=== PATIENT | male | born 1990 | race African-American/Black ===

== ENCOUNTER 2019-06-25 19:02 | Observation (INO) | payer SELFPAY ==
[2019-06-25] MEDS ORDERED: Ondansetron 4 MG/2 ML SDV IVPUSH ONE (19:40)
[2019-06-25] MEDS ORDERED: Ketorolac 30 MG/ML SDV IVPUSH ONE (19:40)
[2019-06-25] MEDS ORDERED: Sodium Chloride 0.9% 1,000 ML IV ONE (19:40)
[2019-06-25] MEDS ORDERED: Alum Hydrox/Mag Hydrox/Simeth 15 ML, Metoclopramide 5 MG, Lidocaine 2% 5 ML PO ONE ×3 (19:42)
--- NOTE | 2019-06-25 19:48 | EDM.PDOC ---
ED HPI GENERAL MEDICAL PROBLEM - General Chief Complaint: Abdominal Pain Stated Complaint: ABN PAIN Time Seen by Provider: 06/25/19 19:38 - History of Present Illness INITIAL COMMENTS - FREE TEXT/NARRATIVE: HISTORY AND PHYSICAL: History of present illness: Patient 28-year-old male presents concerned epigastric abdominal discomfort 3 days this is been off-and-on this seems to be related to food patient denies fever chills denies vomiting denies chest pain shortness breath or other concern. Review of systems: As per history of present illness and below otherwise all systems reviewed and negative. Past medical history: As per history of present illness and as reviewed below otherwise noncontributory. Surgical history: As per history of present illness and as reviewed below otherwise noncontributory. Social history: No reported history of drug or alcohol abuse. Family history: As per history of present illness and as reviewed below otherwise noncontributory. Physical exam: HEENT: Atraumatic, normocephalic, pupils reactive, negative for conjunctival pallor or scleral icterus, mucous membranes moist, throat clear, neck supple, nontender, trachea midline. Lungs: Clear to auscultation, breath sounds equal bilaterally, chest nontender. Heart: S1S2, regular, negative for clicks, rubs, or JVD. Abdomen: Soft, nondistended, mild tenderness epigastrium to palpation no rebound no guarding Negative for masses or hepatosplenomegaly. Negative for costovertebral tenderness. Pelvis: Stable nontender. Genitourinary: Deferred. Rectal: Deferred. Extremities: Atraumatic, negative for cords or calf pain. Neurovascular unremarkable. Neuro: Awake, alert, oriented. Cranial nerves II through XII unremarkable. Cerebellum unremarkable. Motor and sensory unremarkable throughout. Exam nonfocal. Diagnostics: CBC CMP lipase UA ultrasound right upper quadrant Therapeutics: Saline 1 L bolus Toradol 30 mg IV GI cocktail and Zofran 4 mg IV Impression: #1 epigastric abdominal pain etiology to be determined Definitive disposition and diagnosis as appropriate pending reevaluation and review of above. abdominal Pain Score (Numeric/FACES): 10 - Related Data Allergies Allergy/AdvReac Type Severity Reaction Status Date / Time No Known Allergies Allergy Verified 06/25/19 19:36 Home Meds: Home Meds . [No Known Home Meds] 06/25/19 [History] Past Medical History - Past Surgical History HEENT Surgical History: Reports: Oral Surgery Social & Family History - Family History Family Medical History: Noncontributory - Tobacco Use Smoking Status *Q: Never Smoker - Caffeine Use Caffeine Use: Reports: None - Recreational Drug Use Recreational Drug Use: No ED ROS GENERAL - Review of Systems Review Of Systems: ROS reveals no pertinent complaints other than HPI. ED EXAM, GENERAL - Physical Exam Exam: See Below (See dictation) Course - Vital Signs Last Recorded V/S: Last Vital Signs Temp 36.5 C 06/25/19 19:30 Pulse 82 06/25/19 20:23 Resp 17 06/25/19 20:23 BP 116/75 06/25/19 20:23 Pulse Ox 98 06/25/19 20:23 - Orders/Labs/Meds Labs: Laboratory Tests 06/25/19 06/25/19 06/25/19 Range/Units 19:37 19:50 19:50 WBC 7.74 (4.0-11.0) K/uL RBC 4.09 L (4.50-5.90) M/uL Hgb 12.2 L (13.0-17.0) g/dL Hct 36.3 L (38.0-50.0) % MCV 88.8 (80.0-98.0) fL MCH 29.8 (27.0-32.0) pg MCHC 33.6 (31.0-37.0) g/dL RDW Std Deviation 42.8 (28.0-62.0) fl RDW Coeff of Gail 13 (11.0-15.0) % Plt Count 258 (150-400) K/uL MPV 9.60 (7.40-12.00) fL Neut % (Auto) 61.5 (48.0-80.0) % Lymph % (Auto) 23.1 (16.0-40.0) % [place] % (Auto) 11.2 (0.0-15.0) % Eos % (Auto) 3.9 (0.0-7.0) % Baso % (Auto) 0.3 (0.0-1.5) % Neut # (Auto) 4.8 (1.4-5.7) K/uL Lymph # (Auto) 1.8 (0.6-2.4) K/uL [place] # (Auto) 0.9 H (0.0-0.8) K/uL Eos # (Auto) 0.3 (0.0-0.7) K/uL Baso # (Auto) 0.0 (0.0-0.1) K/uL Nucleated RBC % 0.0 /100WBC Nucleated RBCs # 0 K/uL Sodium 138 (136-148) mmol/L Potassium 3.8 (3.5-5.1) mmol/L Chloride 103 (98-107) mmol/L Carbon Dioxide 28.9 (21.0-32.0) mmol/L BUN 12 (7.0-18.0) mg/dL Creatinine 1.1 (0.8-1.3) mg/dL Est Cr Clr Drug Dosing 104.58 mL/min Estimated GFR (MDRD) > 60.0 ml/min Glucose 138 H (74-106) mg/dL Calcium 9.0 (8.5-10.1) mg/dL Total Bilirubin 0.2 (0.2-1.0) mg/dL AST 12 L (15-37) IU/L ALT 16 (14-63) IU/L Alkaline Phosphatase 93 (46-116) U/L Total Protein 6.7 (6.4-8.2) g/dL Albumin 3.2 L (3.4-5.0) g/dL Globulin 3.5 (2.6-4.0) g/dL Albumin/Globulin Ratio 0.9 (0.9-1.6) Lipase 5045 H (73-393) U/L Urine Color YELLOW Urine Appearance HAZY Urine pH 6.0 (5.0-8.0) Ur Specific [place] 1.020 (1.001-1.035) Urine Protein NEGATIVE (NEGATIVE) mg/dL Urine Glucose (UA) NEGATIVE (NEGATIVE) mg/dL Urine Ketones TRACE H (NEGATIVE) mg/dL Urine Occult Blood NEGATIVE (NEGATIVE) Urine Nitrite NEGATIVE (NEGATIVE) Urine Bilirubin NEGATIVE (NEGATIVE) Urine Urobilinogen 0.2 (<2.0) EU/dL Ur Leukocyte Esterase NEGATIVE (NEGATIVE) Meds: Medications Discontinued Medications Generic Name Dose Route Start Last Admin Trade Name Freq PRN Reason Stop Dose Admin Al Hydroxide/Mg Hydroxide 15 0 ml 06/25/19 19:42 06/25/19 19:56 ml/ Metoclopramide HCl 5 mg/ PO 06/25/19 19:43 1 each Lidocaine HCl 5 ml ONETIME ONE Administration Sodium Chloride 1,000 mls @ 999 mls/hr 06/25/19 19:40 06/25/19 19:56 Normal Saline IV 06/25/19 20:40 999 mls/hr BOLUS ONE Administration Ketorolac Tromethamine 30 mg 06/25/19 19:40 06/25/19 19:58 Toradol IVPUSH 06/25/19 19:41 30 mg ONETIME ONE Administration Ondansetron HCl 4 mg 06/25/19 19:40 06/25/19 19:56 Zofran IVPUSH 06/25/19 19:41 4 mg ONETIME ONE Administration Departure - Departure Time of Disposition: 22:13 Disposition: Refer to Observation Condition: Good Clinical Impression: Abdominal pain, Pancreatitis - Discharge Information Referrals: PCP,None [Primary Care Provider] - Forms: ED Department Discharge
[2019-06-25 20:23] LABS: CHLORIDE,CL 103 mmol/L (98-107); SODIUM,NA 138 mmol/L (136-148)
--- NOTE | 2019-06-25 21:24 | US ---
INDICATION: Epigastric pain TECHNIQUE: Ultrasound abdomen limited. Sonographic images of the right upper quadrant were obtained using sepulveda-scale and color Doppler images. COMPARISON: None FINDINGS: Liver: The liver parenchyma is normal in echotexture. Gallbladder: No gallstones or sludge seen in the contracted lumen. The gallbladder wall is normal in appearance. No pericholecystic fluid is present. No sonographic [place] sign is present. Common bile duct: 8 mm. No intrahepatic biliary ductal dilatation seen. Pancreas: The visualized portions of the pancreatic head and body are normal in appearance. Right Kidney: 10.5 cm. No hydronephrosis or ureterectasis is seen. Vascular: The IVC and aorta are not well demonstrated. IMPRESSION: 1. The CBD is enlarged for the patient`s age, measuring 8 mm. If there is clinical evidence of biliary obstruction, further evaluation with MRCP is recommended. Dictated by Davi Carl MD @ 06/25/2019 9:22:01 PM Dictated by: Davi Carl MD @ 06/25/2019 21:22:07 (Electronically Signed)
[2019-06-25] MEDS ORDERED: Sodium Chloride 0.9% 1,000 ML IV SCH (22:30)
[2019-06-25] MEDS ORDERED: LORazepam 2 MG/ML SDV IVPUSH PRN (23:25)
[2019-06-25] MEDS: Morphine 2 MG/ML Syringe IVPUSH PRN (23:50)
[2019-06-26] MEDS: Morphine 2 MG/ML Syringe IVPUSH PRN ×7 (04:38→23:56)
[2019-06-26] MEDS: Sodium Chloride 0.9% 1,000 ML IV SCH ×3 (04:42→17:58)
[2019-06-26 06:51] LABS: CHLORIDE,CL 106 mmol/L (98-107); SODIUM,NA 139 mmol/L (136-148)
--- NOTE | 2019-06-26 07:37 | PCM.HP.2 ---
H&P History of Present Illness - General Date of Service: 06/26/19 Admit Problem/Dx: Admission Diagnosis/Problem Admission Diagnosis/Problem Pancreatitis Source of Information: Patient History Limitations: Reports: No Limitations - History of Present Illness Initial Comments - Free Text/Narative: The patient is an otherwise healthy 28-year-old gentleman who presented to the emergency department with a complaint of abdominal pain for the past 3 days. Patient also says that he has traveled from [place] and riding in the car was extremely uncomfortable. He started to have back pain with this which is located on the right side of his back and radiated around to the front. The patient also said that the pain he was experiencing was made markedly worse after eating. The patient also admits to drinking 24 ounces of light beer per day and had been drinking slightly more before his abdominal pain occurred. The patient says that he has not had any nausea or vomiting. He has been afraid to eat secondary to the pain. No diarrhea or constipation. No fever or chills. Onset of Symptoms: Reports: Gradual Duration of Symptoms: Reports: Day(s): Location: Reports: Abdomen, Back Quality: Reports: Stabbing, Throbbing Severity: Moderate Improves with: Reports: Medication, Rest Worsens with: Reports: Eating Context: Reports: Sick Contact Associated Symptoms: Reports: Nausea/Vomiting abdominal Pain Score (Numeric/FACES): 5 - Related Data Allergies/Adverse Reactions: Allergies Allergy/AdvReac Type Severity Reaction Status Date / Time No Known Allergies Allergy Verified 06/25/19 23:01 Home Medications: Home Meds . [No Known Home Meds] 06/25/19 [History] Past Medical History HEENT History: Reports: None Cardiovascular History: Reports: None Respiratory History: Reports: None Gastrointestinal History: Reports: Hemorrhoids Genitourinary History: Reports: None Musculoskeletal History: Reports: Fracture Neurological History: Reports: None Psychiatric History: Reports: None Endocrine/Metabolic History: Reports: None Hematologic History: Reports: None Immunologic History: Reports: None Oncologic (Cancer) History: Reports: None Dermatologic History: Reports: None - Infectious Disease History Infectious Disease History: Reports: None - Past Surgical History HEENT Surgical History: Reports: Oral Surgery Social & Family History - Family History Family Medical History: Noncontributory - Tobacco Use Smoking Status *Q: Former Smoker Used Tobacco, but Quit: Yes Month/Year Tobacco Last Used: 11/2013 - Caffeine Use Caffeine Use: Reports: Tea - Alcohol Use Alcohol Use History: Yes Days Per Week of Alcohol Use: 7 Number of Drinks Per Day: 1 Total Drinks Per Week: 7 Date of Last Drink: 06/23/19 Alcohol Use in Last Twelve Months: Yes - Recreational Drug Use Recreational Drug Use: No - Living Situation & Occupation Living situation: Reports: Occupation: Employed H&P Review of Systems - Review of Systems: Review Of Systems: See Below General: Reports: Decreased Appetite HEENT: Reports: No Symptoms Pulmonary: Reports: No Symptoms Cardiovascular: Reports: No Symptoms Gastrointestinal: Reports: Abdominal Pain, Nausea Genitourinary: Reports: No Symptoms Musculoskeletal: Reports: Back Pain Skin: Reports: No Symptoms Psychiatric: Reports: No Symptoms Neurological: Reports: No Symptoms Hematologic/Lymphatic: Reports: No Symptoms Immunologic: Reports: No Symptoms Exam - Exam Exam: See Below - Vital Signs Vital Signs: Last Vital Signs Temp 36.5 C 06/26/19 03:52 Pulse 79 06/26/19 03:52 Resp 16 06/26/19 03:52 BP 105/58 L 06/26/19 03:52 Pulse Ox 97 06/26/19 03:52 Weight: 92.079 kg - Exam Quality Assessment: No: Supplemental Oxygen General: Alert, Oriented, Cooperative, Mild Distress HEENT: Conjunctiva Clear, EACs Clear, EOMI, Pupils Equal, PERRLA. No: Mucosa Moist & [place] (Dry) Neck: Supple, Trachea Midline Lungs: Clear to Auscultation, Normal Respiratory Effort Cardiovascular: Regular Rate, Regular Rhythm GI/Abdominal Exam: Normal Bowel Sounds, Soft, No Distention, Tender (Tender supraumbilical area). No: Guarding, Rigid, Rebound Back Exam: Normal Inspection, Full Range of Motion. No: CVA Tenderness (L), CVA Tenderness (R) Extremities: Normal Inspection, No Pedal Edema Skin: Warm, Dry, Intact Neurological: Cranial Nerves Intact Neuro Extensive - Mental Status: Alert, Oriented x3 Psychiatric: Alert, Normal Affect, Normal Mood - Patient Data Lab Results Last 24 hrs: Laboratory Results - last 24 hr 06/25/19 06/25/19 06/25/19 Range/Units 19:37 19:50 19:50 WBC 7.74 (4.0-11.0) K/uL RBC 4.09 L (4.50-5.90) M/uL Hgb 12.2 L (13.0-17.0) g/dL Hct 36.3 L (38.0-50.0) % MCV 88.8 (80.0-98.0) fL MCH 29.8 (27.0-32.0) pg MCHC 33.6 (31.0-37.0) g/dL RDW Std Deviation 42.8 (28.0-62.0) fl RDW Coeff of Gail 13 (11.0-15.0) % Plt Count 258 (150-400) K/uL MPV 9.60 (7.40-12.00) fL Neut % (Auto) 61.5 (48.0-80.0) % Lymph % (Auto) 23.1 (16.0-40.0) % [place] % (Auto) 11.2 (0.0-15.0) % Eos % (Auto) 3.9 (0.0-7.0) % Baso % (Auto) 0.3 (0.0-1.5) % Neut # (Auto) 4.8 (1.4-5.7) K/uL Lymph # (Auto) 1.8 (0.6-2.4) K/uL [place] # (Auto) 0.9 H (0.0-0.8) K/uL Eos # (Auto) 0.3 (0.0-0.7) K/uL Baso # (Auto) 0.0 (0.0-0.1) K/uL Nucleated RBC % 0.0 /100WBC Nucleated RBCs # 0 K/uL Sodium 138 (136-148) mmol/L Potassium 3.8 (3.5-5.1) mmol/L Chloride 103 (98-107) mmol/L Carbon Dioxide 28.9 (21.0-32.0) mmol/L BUN 12 (7.0-18.0) mg/dL Creatinine 1.1 (0.8-1.3) mg/dL Est Cr Clr Drug Dosing 104.58 mL/min Estimated GFR (MDRD) > 60.0 ml/min Glucose 138 H (74-106) mg/dL Calcium 9.0 (8.5-10.1) mg/dL Total Bilirubin 0.2 (0.2-1.0) mg/dL AST 12 L (15-37) IU/L ALT 16 (14-63) IU/L Alkaline Phosphatase 93 (46-116) U/L Total Protein 6.7 (6.4-8.2) g/dL Albumin 3.2 L (3.4-5.0) g/dL Globulin 3.5 (2.6-4.0) g/dL Albumin/Globulin Ratio 0.9 (0.9-1.6) Lipase 5045 H (73-393) U/L Urine Color YELLOW Urine Appearance HAZY Urine pH 6.0 (5.0-8.0) Ur Specific [place] 1.020 (1.001-1.035) Urine Protein NEGATIVE (NEGATIVE) mg/dL Urine Glucose (UA) NEGATIVE (NEGATIVE) mg/dL Urine Ketones TRACE H (NEGATIVE) mg/dL Urine Occult Blood NEGATIVE (NEGATIVE) Urine Nitrite NEGATIVE (NEGATIVE) Urine Bilirubin NEGATIVE (NEGATIVE) Urine Urobilinogen 0.2 (<2.0) EU/dL Ur Leukocyte Esterase NEGATIVE (NEGATIVE) 06/26/19 06/26/19 Range/Units 06:17 06:17 WBC 6.79 (4.0-11.0) K/uL RBC 3.88 L (4.50-5.90) M/uL Hgb 11.3 L (13.0-17.0) g/dL Hct 34.5 L (38.0-50.0) % MCV 88.9 (80.0-98.0) fL MCH 29.1 (27.0-32.0) pg MCHC 32.8 (31.0-37.0) g/dL RDW Std Deviation 43.1 (28.0-62.0) fl RDW Coeff of Gail 13 (11.0-15.0) % Plt Count 228 (150-400) K/uL MPV 9.70 (7.40-12.00) fL Neut % (Auto) 64.4 (48.0-80.0) % Lymph % (Auto) 18.7 (16.0-40.0) % [place] % (Auto) 12.4 (0.0-15.0) % Eos % (Auto) 4.4 (0.0-7.0) % Baso % (Auto) 0.1 (0.0-1.5) % Neut # (Auto) 4.4 (1.4-5.7) K/uL Lymph # (Auto) 1.3 (0.6-2.4) K/uL [place] # (Auto) 0.8 (0.0-0.8) K/uL Eos # (Auto) 0.3 (0.0-0.7) K/uL Baso # (Auto) 0.0 (0.0-0.1) K/uL Nucleated RBC % 0.0 /100WBC Nucleated RBCs # 0 K/uL Sodium 139 (136-148) mmol/L Potassium 4.2 (3.5-5.1) mmol/L Chloride 106 (98-107) mmol/L Carbon Dioxide 27.2 (21.0-32.0) mmol/L BUN 10 (7.0-18.0) mg/dL Creatinine 0.9 (0.8-1.3) mg/dL Est Cr Clr Drug Dosing 127.82 mL/min Estimated GFR (MDRD) > 60.0 ml/min Glucose 99 (74-106) mg/dL Calcium 8.5 (8.5-10.1) mg/dL Total Bilirubin 0.3 (0.2-1.0) mg/dL AST 15 (15-37) IU/L ALT 20 (14-63) IU/L Alkaline Phosphatase 82 (46-116) U/L Total Protein 6.0 L (6.4-8.2) g/dL Albumin 2.8 L (3.4-5.0) g/dL Globulin 3.2 (2.6-4.0) g/dL Albumin/Globulin Ratio 0.9 (0.9-1.6) Lipase 4169 H (73-393) U/L Urine Color Urine Appearance Urine pH (5.0-8.0) Ur Specific [place] (1.001-1.035) Urine Protein (NEGATIVE) mg/dL Urine Glucose (UA) (NEGATIVE) mg/dL Urine Ketones (NEGATIVE) mg/dL Urine Occult Blood (NEGATIVE) Urine Nitrite (NEGATIVE) Urine Bilirubin (NEGATIVE) Urine Urobilinogen (<2.0) EU/dL Ur Leukocyte Esterase (NEGATIVE) Result Diagrams: 06/26/19 06:17 06/26/19 06:17 - Problem List (1) Pancreatitis SNOMED Code(s): 14310222 ICD Code: K85.90 - ACUTE PANCREATITIS WITHOUT NECROSIS OR INFECTION, UNSP Status: Acute Priority: High Current Visit: Yes Qualifiers: Chronicity: acute Pancreatitis type: unspecified pancreatitis type Acute pancreatitis complication: no infection or necrosis Qualified Code(s): K85.90 - Acute pancreatitis without necrosis or infection, unspecified (2) Alcohol use SNOMED Code(s): 857814 ICD Code: Z72.89 - OTHER PROBLEMS RELATED TO LIFESTYLE Status: Acute Current Visit: Yes (3) Abdominal pain SNOMED Code(s): 23381133 ICD Code: R10.9 - UNSPECIFIED ABDOMINAL PAIN Status: Acute Current Visit : Yes Problem List Initiated/Reviewed/Updated: Yes Orders Last 24hrs: Active Orders 24 hr Category Date Time Status Patient Status [ADT] Stat ADT 06/25/19 22:14 Active CIWAA Assessment [RC] Q4H Care 06/26/19 00:00 Active Oxygen Therapy [RC] PRN Care 06/26/19 07:35 Active Up ad Alisha [RC] ASDIRECTED Care 06/26/19 07:35 Active VTE/DVT Education [RC] PER UNIT ROUTINE Care 06/26/19 07:35 Active Vital Signs [RC] Q4H Care 06/26/19 07:35 Active NPO [Nothing Per Oral Diet] [DIET] Diet 06/26/19 Breakfast Active Nothing per Oral Now Diet [DIET] Diet 06/26/19 Lunch Active Enoxaparin [Lovenox] Med 06/26/19 07:45 Ordered 30 mg SUBCUT Q24H LORazepam [Ativan] Med 06/25/19 23:25 Active See Protocol IVPUSH Q4H PRN Morphine Med 06/26/19 07:35 Ordered 2 mg IVPUSH Q2H PRN Morphine Med 06/25/19 23:23 Active 2 mg IVPUSH Q4H PRN Sodium Chloride 0.9% [Normal Saline] 1,000 ml Med 06/25/19 23:30 Active IV ASDIRECTED Resuscitation Status Routine Resus Stat 06/26/19 07:35 Ordered Medication Orders Enoxaparin Sodium (Lovenox) 30 mg SUBCUT Q24H DEDRICK Sodium Chloride (Normal Saline) 1,000 mls @ 150 mls/hr IV ASDIRECTED [facility] Last Admin: 06/26/19 04:42 Dose: 150 mls/hr Lorazepam (Ativan) 0 mg IVPUSH Q4H PRN; Protocol PRN Reason: Withdrawal Symptoms Morphine Sulfate (Morphine) 2 mg IVPUSH Q4H PRN PRN Reason: Pain Last Admin: 06/26/19 04:38 Dose: 2 mg Admin: 06/25/19 23:50 Dose: 2 mg Morphine Sulfate (Morphine) 2 mg IVPUSH Q2H PRN PRN Reason: Pain (severe 7-10) Stop: 06/27/19 07:35 Assessment/Plan Comment:: The patient is a 28-year-old gentleman who has acute pancreatitis as evidenced by physical examination as well as his initial lipase being elevated at 5045 units per liter. The patient has said that he only drinks 24 ounces of beer per day and I do not believe that the patient is minimizing. The patient had a ultrasound of his right upper quadrant obtained to the emergency department which was suggestive of possible bile duct obstruction with a dilation of 8 mm. MRCP was recommended. In the ultrasound the visualized portion of the pancreas was normal. The patient will be kept in hospitalization and he'll be kept nothing by mouth now except for ice chips. The patient will also have his pain controlled with the use of narcotic pain medications. The patient will be kept on IV fluids normal saline at 150 mL per hour. Repeat laboratory testing including lipase is been ordered. The patient will also have DVT prophylaxis with the use of Lovenox. As anticipated the patient should be appropriate for discharge in 1-2 days depending upon his symptoms and being able to tolerate a diet. The patient has been encouraged to ambulate. - Mortality Measure Prognosis:: Good
[2019-06-26] MEDS: Enoxaparin 40 MG/0.4 ML Syringe SUBCUT SCH (07:56)
[2019-06-27] MEDS: Sodium Chloride 0.9% 1,000 ML IV SCH ×2 (00:02→06:39)
[2019-06-27] MEDS: Morphine 2 MG/ML Syringe IVPUSH PRN (05:35)
[2019-06-27 07:00] LABS: CHLORIDE,CL 103 mmol/L (98-107); SODIUM,NA 138 mmol/L (136-148)
[2019-06-27] MEDS ORDERED: Morphine 2 MG/ML Syringe IVPUSH PRN (07:36)
[2019-06-27] MEDS: Enoxaparin 40 MG/0.4 ML Syringe SUBCUT SCH (08:27)
--- NOTE | 2019-06-27 08:48 | PCM.PN ---
<Thaddeus Ramos - Last Filed: 06/27/19 14:33> - General Info Date of Service: 06/27/19 Subjective Update: pt. seen at bedside; states pain is improved since admission; states back pain is improving and thinks it is most likely secondary to laying in bed x 2 days. No other complaints at this time. - Review of Systems General: Reports: No Symptoms HEENT: Reports: No Symptoms Pulmonary: Reports: No Symptoms Cardiovascular: Reports: No Symptoms Gastrointestinal: Reports: Abdominal Pain, Nausea Genitourinary: Reports: No Symptoms Musculoskeletal: Reports: Back Pain Skin: Reports: No Symptoms Neurological: Reports: No Symptoms Psychiatric: Reports: No Symptoms - Patient Data Vitals - Most Recent: Last Vital Signs Temp 99.6 F 06/27/19 08:00 Pulse 93 06/27/19 08:00 Resp 17 06/27/19 08:00 BP 100/73 06/27/19 08:00 Pulse Ox 95 06/27/19 08:00 Weight - Most Recent: 92.079 kg I&O - Last 24 Hours: Intake & Output 06/26/19 06/27/19 06/27/19 22:59 06:59 14:59 Intake Total 723 2055 Output Total 1400 900 Balance -677 1155 Lab Results Last 24 Hours: Laboratory Results - last 24 hr 06/27/19 06/27/19 Range/Units 05:54 05:54 WBC 5.66 (4.0-11.0) K/uL RBC 3.89 L (4.50-5.90) M/uL Hgb 11.4 L (13.0-17.0) g/dL Hct 34.6 L (38.0-50.0) % MCV 88.9 (80.0-98.0) fL MCH 29.3 (27.0-32.0) pg MCHC 32.9 (31.0-37.0) g/dL RDW Std Deviation 43.1 (28.0-62.0) fl RDW Coeff of Gail 13 (11.0-15.0) % Plt Count 250 (150-400) K/uL MPV 9.70 (7.40-12.00) fL Add Manual Diff YES Neutrophils % (Manual) 13 L (48.0-80.0) % Band Neutrophils % 37 % Lymphocytes % (Manual) 35 (16.0-40.0) % Monocytes % (Manual) 10 (0.0-15.0) % Eosinophils % (Manual) 5 (0.0-7.0) % Nucleated RBC % 0.0 /100WBC Absolute Seg Neuts 0.7 L (1.4-5.7) Band Neutrophils # 2.1 Lymphocytes # (Manual) 2.0 (0.6-2.4) Monocytes # (Manual) 0.6 (0.0-0.8) Eosinophils # (Manual) 0.3 (0.0-0.7) Nucleated RBCs # 0 K/uL Sodium 138 (136-148) mmol/L Potassium 4.0 (3.5-5.1) mmol/L Chloride 103 (98-107) mmol/L Carbon Dioxide 25.4 (21.0-32.0) mmol/L BUN 7 (7.0-18.0) mg/dL Creatinine 1.0 (0.8-1.3) mg/dL Est Cr Clr Drug Dosing 115.04 mL/min Estimated GFR (MDRD) > 60.0 ml/min Glucose 98 (74-106) mg/dL Calcium 8.7 (8.5-10.1) mg/dL Total Bilirubin 0.6 (0.2-1.0) mg/dL AST 11 L (15-37) IU/L ALT 19 (14-63) IU/L Alkaline Phosphatase 80 (46-116) U/L Total Protein 6.1 L (6.4-8.2) g/dL Albumin 2.7 L (3.4-5.0) g/dL Globulin 3.4 (2.6-4.0) g/dL Albumin/Globulin Ratio 0.8 L (0.9-1.6) Lipase 3010 H (73-393) U/L Med Orders - Current: Current Medications Enoxaparin Sodium (Lovenox) 40 mg SUBCUT Q24H [facility] Last Admin: 06/27/19 08:27 Dose: 40 mg Sodium Chloride (Normal Saline) 1,000 mls @ 150 mls/hr IV ASDIRECTED [facility] Last Admin: 06/27/19 06:39 Dose: 150 mls/hr Lorazepam (Ativan) 0 mg IVPUSH Q4H PRN; Protocol PRN Reason: Withdrawal Symptoms Morphine Sulfate (Morphine) 2 mg IVPUSH Q4H PRN PRN Reason: Pain Discontinued Medications Al Hydroxide/Mg Hydroxide 15 ml/ Metoclopramide HCl 5 mg/Lidocaine HCl 5 ml 0 ml PO ONETIME ONE Stop: 06/25/19 19:43 Last Admin: 06/25/19 19:56 Dose: 1 each Sodium Chloride (Normal Saline) 1,000 mls @ 999 mls/hr IV BOLUS ONE Stop: 06/25/19 20:40 Last Admin: 06/25/19 19:56 Dose: 999 mls/hr Sodium Chloride (Normal Saline) 1,000 mls @ 125 mls/hr IV ASDIRECTED [facility] Last Infusion: 06/25/19 23:56 Dose: 150 mls/hr Ketorolac Tromethamine (Toradol) 30 mg IVPUSH ONETIME ONE Stop: 06/25/19 19:41 Last Admin: 06/25/19 19:58 Dose: 30 mg Morphine Sulfate (Morphine) 2 mg IVPUSH Q4H PRN PRN Reason: Pain Last Admin: 06/26/19 04:38 Dose: 2 mg Morphine Sulfate (Morphine) 2 mg IVPUSH Q2H PRN PRN Reason: Pain (severe 7-10) Stop: 06/27/19 07:35 Last Admin: 06/27/19 05:35 Dose: 2 mg Ondansetron HCl (Zofran) 4 mg IVPUSH ONETIME ONE Stop: 06/25/19 19:41 Last Admin: 06/25/19 19:56 Dose: 4 mg - Exam General: Alert, Oriented HEENT: Pupils Equal, Pupils Reactive, EOMI Neck: Supple Lungs: Clear to Auscultation, Normal Respiratory Effort Cardiovascular: Regular Rate, Regular Rhythm GI/Abdominal Exam: Normal Bowel Sounds, Soft, No Distention, Tender (epigastrum ). No: Rebound Back Exam: Full Range of Motion, Paraspinal Tenderness. No: Vertebral Tenderness Extremities: Normal Inspection, Normal Range of Motion, No Pedal Edema Skin: Warm, Dry, Intact Neurological: No New Focal Deficit Psy/Mental Status: Alert, Normal Affect, Normal Mood - Problem List & Annotations (1) Abdominal pain SNOMED Code(s): 87943446 Code(s): R10.9 - UNSPECIFIED ABDOMINAL PAIN Status: Acute (2) Alcohol use SNOMED Code(s): 591160 Code(s): Z72.89 - OTHER PROBLEMS RELATED TO LIFESTYLE Status: Acute (3) Pancreatitis SNOMED Code(s): 66412832 Code(s): K85.90 - ACUTE PANCREATITIS WITHOUT NECROSIS OR INFECTION, UNSP Status: Acute Priority: High Qualifiers: Chronicity: acute Pancreatitis type: unspecified pancreatitis type Acute pancreatitis complication: no infection or necrosis Qualified Code(s): K85.90 - Acute pancreatitis without necrosis or infection, unspecified - Problem List Review Problem List Initiated/Reviewed/Updated: Yes - Assessment Assessment:: acute pancreatitis - Plan: continue IV -fluids, encourage increase PO intake . MRCP scheduled for today. Advance diet as tolerated - Plan Plan:: . <Titus Watts - Last Filed: 06/27/19 19:28> - Patient Data Vitals - Most Recent: Last Vital Signs Temp 36.3 C 06/27/19 16:00 Pulse 98 06/27/19 16:00 Resp 18 06/27/19 16:00 BP 116/68 06/27/19 16:00 Pulse Ox 98 06/27/19 16:00 I&O - Last 24 Hours: Intake & Output 06/27/19 06/27/19 06/27/19 06:59 14:59 22:59 Intake Total 2055 1805 Output Total 900 300 Balance 1155 1505 Lab Results Last 24 Hours: Laboratory Results - last 24 hr 06/27/19 06/27/19 06/27/19 Range/Units 05:54 05:54 05:54 WBC 5.66 (4.0-11.0) K/uL RBC 3.89 L (4.50-5.90) M/uL Hgb 11.4 L (13.0-17.0) g/dL Hct 34.6 L (38.0-50.0) % MCV 88.9 (80.0-98.0) fL MCH 29.3 (27.0-32.0) pg MCHC 32.9 (31.0-37.0) g/dL RDW Std Deviation 43.1 (28.0-62.0) fl RDW Coeff of Gail 13 (11.0-15.0) % Plt Count 250 (150-400) K/uL MPV 9.70 (7.40-12.00) fL Add Manual Diff YES Neutrophils % (Manual) 13 L (48.0-80.0) % Band Neutrophils % 37 % Lymphocytes % (Manual) 35 (16.0-40.0) % Monocytes % (Manual) 10 (0.0-15.0) % Eosinophils % (Manual) 5 (0.0-7.0) % Nucleated RBC % 0.0 /100WBC Absolute Seg Neuts 0.7 L (1.4-5.7) Band Neutrophils # 2.1 Lymphocytes # (Manual) 2.0 (0.6-2.4) Monocytes # (Manual) 0.6 (0.0-0.8) Eosinophils # (Manual) 0.3 (0.0-0.7) Nucleated RBCs # 0 K/uL Sodium 138 (136-148) mmol/L Potassium 4.0 (3.5-5.1) mmol/L Chloride 103 (98-107) mmol/L Carbon Dioxide 25.4 (21.0-32.0) mmol/L BUN 7 (7.0-18.0) mg/dL Creatinine 1.0 (0.8-1.3) mg/dL Est Cr Clr Drug Dosing 115.04 mL/min Estimated GFR (MDRD) > 60.0 ml/min Glucose 98 (74-106) mg/dL Calcium 8.7 (8.5-10.1) mg/dL Total Bilirubin 0.6 (0.2-1.0) mg/dL AST 11 L (15-37) IU/L ALT 19 (14-63) IU/L Alkaline Phosphatase 80 (46-116) U/L Total Protein 6.1 L (6.4-8.2) g/dL Albumin 2.7 L (3.4-5.0) g/dL Globulin 3.4 (2.6-4.0) g/dL Albumin/Globulin Ratio 0.8 L (0.9-1.6) Triglycerides 80 (0-200) mg/dL Cholesterol 100 (50-200) mg/dL LDL Cholesterol, Calc 57 L (60-180) mg/dL VLDL Cholesterol 16 (5-55) mg/dL HDL Cholesterol 27 L (40-60) mg/dL Cholesterol/HDL Ratio 3.7 (3.3-6.0) Lipase 3010 H (73-393) U/L Med Orders - Current: Current Medications Discontinued Medications Al Hydroxide/Mg Hydroxide 15 ml/ Metoclopramide HCl 5 mg/Lidocaine HCl 5 ml 0 ml PO ONETIME ONE Stop: 06/25/19 19:43 Last Admin: 06/25/19 19:56 Dose: 1 each Enoxaparin Sodium (Lovenox) 40 mg SUBCUT Q24H [facility] Last Admin: 06/27/19 08:27 Dose: 40 mg Gadobenate Dimeglumine (Multihance) 20 ml IVPUSH ONETIME STA Stop: 06/27/19 11:39 Last Admin: 06/27/19 11:38 Dose: 18 ml Sodium Chloride (Normal Saline) 1,000 mls @ 999 mls/hr IV BOLUS ONE Stop: 06/25/19 20:40 Last Admin: 06/25/19 19:56 Dose: 999 mls/hr Sodium Chloride (Normal Saline) 1,000 mls @ 125 mls/hr IV ASDIRECTED [facility] Last Infusion: 06/25/19 23:56 Dose: 150 mls/hr Sodium Chloride (Normal Saline) 1,000 mls @ 150 mls/hr IV ASDIRECTED [facility] Last Admin: 06/27/19 06:39 Dose: 150 mls/hr Ibuprofen (Motrin) 800 mg PO ONETIME ONE Stop: 06/27/19 17:15 Last Admin: 06/27/19 17:44 Dose: 800 mg Ketorolac Tromethamine (Toradol) 30 mg IVPUSH ONETIME ONE Stop: 06/25/19 19:41 Last Admin: 06/25/19 19:58 Dose: 30 mg Lorazepam (Ativan) 0 mg IVPUSH Q4H PRN; Protocol PRN Reason: Withdrawal Symptoms Morphine Sulfate (Morphine) 2 mg IVPUSH Q4H PRN PRN Reason: Pain Last Admin: 06/26/19 04:38 Dose: 2 mg Morphine Sulfate (Morphine) 2 mg IVPUSH Q2H PRN PRN Reason: Pain (severe 7-10) Stop: 06/27/19 07:35 Last Admin: 06/27/19 05:35 Dose: 2 mg Morphine Sulfate (Morphine) 2 mg IVPUSH Q4H PRN PRN Reason: Pain Last Admin: 06/27/19 09:48 Dose: 2 mg Ondansetron HCl (Zofran) 4 mg IVPUSH ONETIME ONE Stop: 06/25/19 19:41 Last Admin: 06/25/19 19:56 Dose: 4 mg - Free Text/Narrative Note: I have evaluated the patient. I have discussed findings and treatment plan with resident. I agree with the assessment and plan outlined in the following note.
[2019-06-27] MEDS ORDERED: Gadobenate Dimeglumine 529 MG/ML 20 ML SDV IVPUSH STA (11:38)
--- NOTE | 2019-06-27 13:26 | MR ---
INDICATION: Pancreatitis. COMPARISON: Abdominal ultrasound dated 25 June 2019. TECHNIQUE: Abdominal MRI with T1 in- and out of phase, T2, diffusion weighted, and progressively delayed post-contrast images. Intravenous gadolinium administered. FINDINGS: No fatty infiltration of the liver. No focal abnormalities identified in the visualized portions of the liver, spleen, pancreas, adrenal glands, and kidneys. No hydronephrosis. Mild edema around the head of the pancreas. Mild dilation of the common bile duct measuring up to 8 mm. No intrahepatic bile duct dilation. No definite filling defects in the biliary system. Normal size of the main pancreatic duct. IMPRESSION: 1. Mild edema around the head of the pancreas representing an acute pancreatitis. No evidence of pancreatic necrosis. 2. Mild dilation of the common bile duct. No definite choledocholithiasis identified. Dictated by Jasson Ellison MD @ Jun 27 2019 1:12PM Signed by Dr. Jasson Ellison @ Jun 27 2019 1:24PM
--- NOTE | 2019-06-27 15:10 | PCM.DCSUM1 ---
<Thaddeus Ramos - Last Filed: 06/27/19 16:04> Discharge Summary - Hospital Course Free Text/Narrative:: Discharge summary Admission date June 26, 2019 Discharge date June 27/2019 Admission diagnoses: acute pancreatitis Back pain Discharge diagnoses: acute pancreatitis improving Back pain stable Consultations: none Procedures: none Hospital course: Patient is a otherwise 28-year-old male presenting for acute abdominal pain for 3 days w/ low back pain. Patient was drinking 24 ounce of alcohol daily however had been celebrating more than usual. 2-3 days prior to admission. CAGE questionnaire negative. On admission lipase was elevated; patient ultimately diagnosed with pancreatitis was made NPO and started on IV fluids, and pain was managed w/ morphine. Following day patient had a MRCP secondary to marginal dilation of common bile duct however no stones or phlegmons were appreciated. Patient diet advanced as tolerated; no increase pain w/ bland diet prior to discharge, not requesting more pain meds. Discharge in stable condition. Disposition: home Discharge medications: none Follow-up:advise a follow-up PCP within one week. - Discharge Data Discharge Date: 06/27/19 Discharge Disposition: Home, Self-Care 01 Condition: Good - Discharge Diagnosis/Problem(s) (1) Abdominal pain SNOMED Code(s): 00448314 ICD Code: R10.9 - UNSPECIFIED ABDOMINAL PAIN Status: Acute (2) Alcohol use SNOMED Code(s): 431797 ICD Code: Z72.89 - OTHER PROBLEMS RELATED TO LIFESTYLE Status: Acute (3) Pancreatitis SNOMED Code(s): 49238491 ICD Code: K85.90 - ACUTE PANCREATITIS WITHOUT NECROSIS OR INFECTION, UNSP Status: Acute Priority: High Qualifiers: Chronicity: acute Pancreatitis type: unspecified pancreatitis type Acute pancreatitis complication: no infection or necrosis Qualified Code(s): K85.90 - Acute pancreatitis without necrosis or infection, unspecified - Discharge Plan Home Medications: Home Meds . [No Known Home Meds] 06/25/19 [History] Patient Handouts: Acute Pancreatitis, [id number], Levy Diet Referrals: Marli Feliciano NP [Nurse Practitioner] - 07/08/19 1:00 pm - Discharge Summary/Plan Comment DC Time >30 min.: No - Patient Data Vitals - Most Recent: Last Vital Signs Temp 100.0 F 06/27/19 12:00 Pulse 92 06/27/19 12:00 Resp 16 06/27/19 12:00 BP 106/72 06/27/19 12:00 Pulse Ox 97 06/27/19 12:00 Weight - Most Recent: 92.079 kg I&O - Last 24 hours: Intake & Output 06/27/19 06/27/19 06/27/19 06:59 14:59 22:59 Intake Total 2055 Output Total 900 Balance 1155 Lab Results - Last 24 hrs: Laboratory Results - last 24 hr 06/27/19 06/27/19 06/27/19 Range/Units 05:54 05:54 05:54 WBC 5.66 (4.0-11.0) K/uL RBC 3.89 L (4.50-5.90) M/uL Hgb 11.4 L (13.0-17.0) g/dL Hct 34.6 L (38.0-50.0) % MCV 88.9 (80.0-98.0) fL MCH 29.3 (27.0-32.0) pg MCHC 32.9 (31.0-37.0) g/dL RDW Std Deviation 43.1 (28.0-62.0) fl RDW Coeff of Gail 13 (11.0-15.0) % Plt Count 250 (150-400) K/uL MPV 9.70 (7.40-12.00) fL Add Manual Diff YES Neutrophils % (Manual) 13 L (48.0-80.0) % Band Neutrophils % 37 % Lymphocytes % (Manual) 35 (16.0-40.0) % Monocytes % (Manual) 10 (0.0-15.0) % Eosinophils % (Manual) 5 (0.0-7.0) % Nucleated RBC % 0.0 /100WBC Absolute Seg Neuts 0.7 L (1.4-5.7) Band Neutrophils # 2.1 Lymphocytes # (Manual) 2.0 (0.6-2.4) Monocytes # (Manual) 0.6 (0.0-0.8) Eosinophils # (Manual) 0.3 (0.0-0.7) Nucleated RBCs # 0 K/uL Sodium 138 (136-148) mmol/L Potassium 4.0 (3.5-5.1) mmol/L Chloride 103 (98-107) mmol/L Carbon Dioxide 25.4 (21.0-32.0) mmol/L BUN 7 (7.0-18.0) mg/dL Creatinine 1.0 (0.8-1.3) mg/dL Est Cr Clr Drug Dosing 115.04 mL/min Estimated GFR (MDRD) > 60.0 ml/min Glucose 98 (74-106) mg/dL Calcium 8.7 (8.5-10.1) mg/dL Total Bilirubin 0.6 (0.2-1.0) mg/dL AST 11 L (15-37) IU/L ALT 19 (14-63) IU/L Alkaline Phosphatase 80 (46-116) U/L Total Protein 6.1 L (6.4-8.2) g/dL Albumin 2.7 L (3.4-5.0) g/dL Globulin 3.4 (2.6-4.0) g/dL Albumin/Globulin Ratio 0.8 L (0.9-1.6) Triglycerides 80 (0-200) mg/dL Cholesterol 100 (50-200) mg/dL LDL Cholesterol, Calc 57 L (60-180) mg/dL VLDL Cholesterol 16 (5-55) mg/dL HDL Cholesterol 27 L (40-60) mg/dL Cholesterol/HDL Ratio 3.7 (3.3-6.0) Lipase 3010 H (73-393) U/L Med Orders - Current: Current Medications Enoxaparin Sodium (Lovenox) 40 mg SUBCUT Q24H [facility] Last Admin: 06/27/19 08:27 Dose: 40 mg Sodium Chloride (Normal Saline) 1,000 mls @ 150 mls/hr IV ASDIRECTED [facility] Last Admin: 06/27/19 06:39 Dose: 150 mls/hr Lorazepam (Ativan) 0 mg IVPUSH Q4H PRN; Protocol PRN Reason: Withdrawal Symptoms Discontinued Medications Al Hydroxide/Mg Hydroxide 15 ml/ Metoclopramide HCl 5 mg/Lidocaine HCl 5 ml 0 ml PO ONETIME ONE Stop: 06/25/19 19:43 Last Admin: 06/25/19 19:56 Dose: 1 each Gadobenate Dimeglumine (Multihance) 20 ml IVPUSH ONETIME STA Stop: 06/27/19 11:39 Last Admin: 06/27/19 11:38 Dose: 18 ml Sodium Chloride (Normal Saline) 1,000 mls @ 999 mls/hr IV BOLUS ONE Stop: 06/25/19 20:40 Last Admin: 06/25/19 19:56 Dose: 999 mls/hr Sodium Chloride (Normal Saline) 1,000 mls @ 125 mls/hr IV ASDIRECTED [facility] Last Infusion: 06/25/19 23:56 Dose: 150 mls/hr Ketorolac Tromethamine (Toradol) 30 mg IVPUSH ONETIME ONE Stop: 06/25/19 19:41 Last Admin: 06/25/19 19:58 Dose: 30 mg Morphine Sulfate (Morphine) 2 mg IVPUSH Q4H PRN PRN Reason: Pain Last Admin: 06/26/19 04:38 Dose: 2 mg Morphine Sulfate (Morphine) 2 mg IVPUSH Q2H PRN PRN Reason: Pain (severe 7-10) Stop: 06/27/19 07:35 Last Admin: 06/27/19 05:35 Dose: 2 mg Morphine Sulfate (Morphine) 2 mg IVPUSH Q4H PRN PRN Reason: Pain Last Admin: 06/27/19 09:48 Dose: 2 mg Ondansetron HCl (Zofran) 4 mg IVPUSH ONETIME ONE Stop: 06/25/19 19:41 Last Admin: 06/25/19 19:56 Dose: 4 mg <Titus Watts - Last Filed: 06/27/19 19:31> - Patient Data Vitals - Most Recent: Last Vital Signs Temp 36.3 C 06/27/19 16:00 Pulse 98 06/27/19 16:00 Resp 18 06/27/19 16:00 BP 116/68 06/27/19 16:00 Pulse Ox 98 06/27/19 16:00 I&O - Last 24 hours: Intake & Output 06/27/19 06/27/19 06/27/19 06:59 14:59 22:59 Intake Total 2055 1805 Output Total 900 300 Balance 1155 1505 Lab Results - Last 24 hrs: Laboratory Results - last 24 hr 06/27/19 06/27/19 06/27/19 Range/Units 05:54 05:54 05:54 WBC 5.66 (4.0-11.0) K/uL RBC 3.89 L (4.50-5.90) M/uL Hgb 11.4 L (13.0-17.0) g/dL Hct 34.6 L (38.0-50.0) % MCV 88.9 (80.0-98.0) fL MCH 29.3 (27.0-32.0) pg MCHC 32.9 (31.0-37.0) g/dL RDW Std Deviation 43.1 (28.0-62.0) fl RDW Coeff of Gail 13 (11.0-15.0) % Plt Count 250 (150-400) K/uL MPV 9.70 (7.40-12.00) fL Add Manual Diff YES Neutrophils % (Manual) 13 L (48.0-80.0) % Band Neutrophils % 37 % Lymphocytes % (Manual) 35 (16.0-40.0) % Monocytes % (Manual) 10 (0.0-15.0) % Eosinophils % (Manual) 5 (0.0-7.0) % Nucleated RBC % 0.0 /100WBC Absolute Seg Neuts 0.7 L (1.4-5.7) Band Neutrophils # 2.1 Lymphocytes # (Manual) 2.0 (0.6-2.4) Monocytes # (Manual) 0.6 (0.0-0.8) Eosinophils # (Manual) 0.3 (0.0-0.7) Nucleated RBCs # 0 K/uL Sodium 138 (136-148) mmol/L Potassium 4.0 (3.5-5.1) mmol/L Chloride 103 (98-107) mmol/L Carbon Dioxide 25.4 (21.0-32.0) mmol/L BUN 7 (7.0-18.0) mg/dL Creatinine 1.0 (0.8-1.3) mg/dL Est Cr Clr Drug Dosing 115.04 mL/min Estimated GFR (MDRD) > 60.0 ml/min Glucose 98 (74-106) mg/dL Calcium 8.7 (8.5-10.1) mg/dL Total Bilirubin 0.6 (0.2-1.0) mg/dL AST 11 L (15-37) IU/L ALT 19 (14-63) IU/L Alkaline Phosphatase 80 (46-116) U/L Total Protein 6.1 L (6.4-8.2) g/dL Albumin 2.7 L (3.4-5.0) g/dL Globulin 3.4 (2.6-4.0) g/dL Albumin/Globulin Ratio 0.8 L (0.9-1.6) Triglycerides 80 (0-200) mg/dL Cholesterol 100 (50-200) mg/dL LDL Cholesterol, Calc 57 L (60-180) mg/dL VLDL Cholesterol 16 (5-55) mg/dL HDL Cholesterol 27 L (40-60) mg/dL Cholesterol/HDL Ratio 3.7 (3.3-6.0) Lipase 3010 H (73-393) U/L Med Orders - Current: Current Medications Discontinued Medications Al Hydroxide/Mg Hydroxide 15 ml/ Metoclopramide HCl 5 mg/Lidocaine HCl 5 ml 0 ml PO ONETIME ONE Stop: 06/25/19 19:43 Last Admin: 06/25/19 19:56 Dose: 1 each Enoxaparin Sodium (Lovenox) 40 mg SUBCUT Q24H [facility] Last Admin: 06/27/19 08:27 Dose: 40 mg Gadobenate Dimeglumine (Multihance) 20 ml IVPUSH ONETIME STA Stop: 06/27/19 11:39 Last Admin: 06/27/19 11:38 Dose: 18 ml Sodium Chloride (Normal Saline) 1,000 mls @ 999 mls/hr IV BOLUS ONE Stop: 06/25/19 20:40 Last Admin: 06/25/19 19:56 Dose: 999 mls/hr Sodium Chloride (Normal Saline) 1,000 mls @ 125 mls/hr IV ASDIRECTED [facility] Last Infusion: 06/25/19 23:56 Dose: 150 mls/hr Sodium Chloride (Normal Saline) 1,000 mls @ 150 mls/hr IV ASDIRECTED [facility] Last Admin: 06/27/19 06:39 Dose: 150 mls/hr Ibuprofen (Motrin) 800 mg PO ONETIME ONE Stop: 06/27/19 17:15 Last Admin: 06/27/19 17:44 Dose: 800 mg Ketorolac Tromethamine (Toradol) 30 mg IVPUSH ONETIME ONE Stop: 06/25/19 19:41 Last Admin: 06/25/19 19:58 Dose: 30 mg Lorazepam (Ativan) 0 mg IVPUSH Q4H PRN; Protocol PRN Reason: Withdrawal Symptoms Morphine Sulfate (Morphine) 2 mg IVPUSH Q4H PRN PRN Reason: Pain Last Admin: 06/26/19 04:38 Dose: 2 mg Morphine Sulfate (Morphine) 2 mg IVPUSH Q2H PRN PRN Reason: Pain (severe 7-10) Stop: 06/27/19 07:35 Last Admin: 06/27/19 05:35 Dose: 2 mg Morphine Sulfate (Morphine) 2 mg IVPUSH Q4H PRN PRN Reason: Pain Last Admin: 06/27/19 09:48 Dose: 2 mg Ondansetron HCl (Zofran) 4 mg IVPUSH ONETIME ONE Stop: 06/25/19 19:41 Last Admin: 06/25/19 19:56 Dose: 4 mg - Free Text/Narrative Note: I have evaluated the patient. I have discussed findings and treatment plan with resident. I agree with the assessment and plan outlined in the following note.
[2019-06-27] MEDS ORDERED: Ibuprofen 800 MG Tab PO ONE (17:14)
== END 2019-06-27 17:55 | disposition home or self-care (01) ==
LOC: MW.ED 19:02 → MW.MS 22:14
PROVIDERS: ADMIT Internal Medicine; ATTEND Internal Medicine
DX: K85.90 Acute pancreatitis without necrosis or infection, unspecified (principal); M54.5 Low back pain; K83.8 Other specified diseases of biliary tract; K64.9 Unspecified hemorrhoids; Z87.891 Personal history of nicotine dependence; Z72.89 Other problems related to lifestyle
CPT/HCPCS: 36415; 74185; 76705; 80053; 80061; 81003; 83690; 85025; 96361; 96374; 96375; 99285; A9270; A9577; J1650; J1885; J2270; J2405; J7040; 96372; 96376; 99284; G0378